=== PATIENT | male | born 1945 | race Caucasian/White ===

== ENCOUNTER 2018-12-06 05:38 | Day surgery (SDC) | payer MEDICARE, OTHER ==
[2018-12-06] MEDS ORDERED: DIPRIVAN 200 MG/20 ML IV ONE (05:39)
[2018-12-06] MEDS ORDERED: Lactated Ringers 1,000 ML IV SCH ×2 (06:30→07:00)
[2018-12-06] MEDS ORDERED: Zofran 4 MG/2 ML VIAL IV STA (06:43)
[2018-12-06] MEDS ORDERED: Zofran 4 MG/2 ML VIAL ONE (06:44)
[2018-12-06] MEDS ORDERED: Lactated Ringers 1,000 ML IV ONE (06:44)
--- NOTE | 2018-12-06 08:37 | OP ---
SURGERY DATE/TIME: 12/06/2018 0757 PREOPERATIVE DIAGNOSIS: Change in bowel habits. POSTOPERATIVE DIAGNOSIS: Normal colon. PROCEDURE: Diagnostic colonoscopy. SURGEON: Farshad Malik M.D. ANESTHESIA: MAC by Deuce Maldonado CRNA. ESTIMATED BLOOD LOSS: None. SPECIMENS: None. DESCRIPTION OF PROCEDURE: After informed written consent was obtained, the patient was taken to the endoscopy suite. He underwent monitored anesthesia. A digital rectal exam showed normal sphincter tone and no internal lesions. The scope was inserted into the rectum and sequentially the entire colonic mucosa was traversed. The level of cecum was reached and verified with direct visualization of ileocecal valve. Upon withdrawal careful mucosal inspection revealed no gross abnormalities. Retroflexion was performed prior to withdrawal and showed no internal lesions. The scope was removed and the patient was transferred to the recovery room in good condition.
[2018-12-06 08:51] VITALS: O2SAT 96
[2018-12-06 09:13] VITALS: BP 125/58; PULSE 67
== END 2018-12-06 09:15 | disposition home or self-care (01) ==
LOC: SDC 05:38
PROVIDERS: ATTEND Family Medicine
DX: R19.4 Change in bowel habit (principal); I10 Essential (primary) hypertension; E78.5 Hyperlipidemia, unspecified
CPT/HCPCS: 99100; J2405; J2704